=== PATIENT | female | born 1960 | race Two or more races ===

== ENCOUNTER 2022-06-24 06:03 | Day surgery (SDC) | payer OTHER ==
[~2022-06-24 06:03] MED LIST: ARNUITY ELLIPT50 MCG IH; AVAPRO75 MG PO; B12 ACTIVE1000 MCG PO; D3 + K2 DOTS 11 EACH PO; EMGALITY P120 MG/1 M; FOLIC ACID0.8 M1 PO; HORIZANT300 MG PO; PAXIL20 MG PO; PREVACID30 MG PO; SINGULAIR 10MG10 MG PO; TENCON 50-3251 EACH PO; XANAX0.25 MG PO
[2022-06-24] MEDS ORDERED: MACROBID 100 M100 MG PO (11:01)
[2022-06-24] MEDS ORDERED: TRAM1TAB98 PO (11:01)
== END 2022-06-24 14:00 | disposition home or self-care (01) ==
LOC: CIR.AMB 06:03
PROVIDERS: ATTEND Obstetrics & Gynecology Gynecology
DX: N81.11 Cystocele, midline (principal); N81.6 Rectocele; Z20.822 Contact with and (suspected) exposure to COVID-19; I10 Essential (primary) hypertension